=== PATIENT | female | born 1955 | race Caucasian/White ===

== ENCOUNTER → 2016-12-24 | Outpatient (CLI) | payer OTHER ==
--- NOTE | 2016-12-24 09:30 | MR ---
EXAMINATION TYPE: MR brain wo con DATE OF EXAM: 12/24/2016 8:19 AM COMPARISON: MRI brain March 08, 2016. HISTORY: Aneurysm per order. Symptoms of dizziness per patient. TECHNIQUE: Multiplanar, multisequence imaging of the brain and brainstem is performed without IV cont rast. FINDINGS: Diffusion weighted images demonstrate no evidence of a recent infarct or other diffusion abnormality. There is no worrisome extra-axial fluid collection. There is persistent ventricular and sulcal promin ence consistent with mild age-related cerebral atrophy. There is some focal and confluent areas of T2 hyperintensity seen throughout the deep and periventricular white matter. Lesions are nonspecific in appearance and distribution but most likely on basis of product of chronic small vessel ischemic gordon nge. No significant change from prior study is seen. Lesion right gen on axial image 8 is stable. Midline structures demonstrate normal morphology. The craniocervical junction appears within normal limits. There is redemonstration of aneurysm at left MCA trifurcation on axial image 12. The visualiz ed sinuses are clear and the globes are intact. IMPRESSION: Mild to moderate white matter changes presumed on basis of product of chronic small vesse l ischemic change in patient this age. No significant change from prior study is seen. Left MCA trifu rcation aneurysm redemonstrated. Please see same day MRA head and neck report.
--- NOTE | 2016-12-24 11:15 | MR ---
EXAMINATION TYPE: MR angio head wo MR angio neck wo/w con DATE OF EXAM: 12/24/2016 8:22 AM COMPARISON: Correlation brain performed earlier today and ultrasound carotids 03/08/2016. Also, CTA hea d 03/08/2016. HISTORY: 61-year-old female aneurysm and carotid stenosis Technique: High-resolution 3-D [id number] imaging of the [place] without IV contrast. Ad ditional 2-D and 3-D gjdn-zw-dsinoz imaging of the neck vasculature followed by coronal pre and postc ontrast sequences utilizing 20 mL intravenous MultiHance gadolinium contrast. FINDINGS: HEAD: There is a tiny 2 mm infundibulum or aneurysm from the lateral wall of the cavernous segment of the r ight internal carotid artery, axial image 74 and series 204 image 7. There is also redemonstrated saccular aneurysm of the M1 segment bifurcation. On the present exam, th is measures 6.1 x craniocaudal 5.9 AP x 4.4 mm wide, refer to series 204 image 18 and series 203 spring ge 9. No other intracranial aneurysm, significant stenosis, or arterial occlusion seen. NECK: There is eccentric atherosclerotic change at the right carotid bulb causing a mild, 30% stenosis of t he proximal ICA by NASCET criteria. On the left, there is atherosclerotic change narrowing the carotid bifurcation at the level of the di stal common carotid artery and proximal most aspect of the internal carotid artery with asymmetric bu lbous dilatation of the carotid bulb up to 7.9 mm. Narrowing of the proximalmost left ICA is measured at a moderate 50% by NASCET criteria criteria, refer to series 703 image 32. The bilateral vertebral arteries are codominant and patent throughout their course. IMPRESSION: 1. Redemonstrated saccular aneurysm at the left MCA bifurcation. This is measured at 6.1 x 5.9 mm seble rod 7 mm on prior CTA. 2. A 2 mm infundibulum versus tiny aneurysm from the lateral wall of the cavernous segment right ICA. 3. Mild, 30% proximal ICA stenosis on the right. 4. Atherosclerotic change at the left carotid bifurcation causing a moderate, 50% stenosis at the pro ximal most left ICA with asymmetric bulbous enlargement of the left carotid bulb.
== END | disposition home or self-care (01) ==
LOC: RADMRIMAIN 07:00
PROVIDERS: ATTEND Nurse Practitioner Acute Care
DX: I67.1 Cerebral aneurysm, nonruptured (principal); R90.82 White matter disease, unspecified; I65.23 Occlusion and stenosis of bilateral carotid arteries
CPT/HCPCS: 70544; 70549; 70551; A9577

== ENCOUNTER → 2017-01-14 | Outpatient (CLI) | payer OTHER ==
--- NOTE | 2017-01-16 14:28 | MM ---
Reason for exam: screening (asymptomatic). Last mammogram was performed 3 years and 5 months ago. History: Patient is postmenopausal. Taking estrogen for 8 years 6 months. Physical Findings: A clinical breast exam by your physician is recommended on an annual basis and results should be correlated with mammographic findings. MG Screening Mammo w CAD Bilateral CC and MLO view(s) were taken. Prior study comparison: August 24, 2013, bilateral digital screening mammo w/CAD. August 05, 2006, bilateral screening mammogram, performed at [facility]. The breast tissue is heterogeneously dense. This may lower the sensitivity of mammography. No significant changes when compared with prior studies. ASSESSMENT: Negative, BI-RAD 1 RECOMMENDATION: Routine screening mammogram of both breasts in 1 year.
== END | disposition home or self-care (01) ==
LOC: RADMAMWWP 10:24
PROVIDERS: ATTEND Family Medicine
DX: Z12.31 Encounter for screening mammogram for malignant neoplasm of breast (principal)

== ENCOUNTER 2017-02-15 11:22 | Observation (INO) | payer OTHER ==
[2017-02-15] MEDS ORDERED: MORPHINE SULFATE 2 MG/ML SYRINGE IVP STA (11:46)
[2017-02-15] MEDS ORDERED: SODIUM CHLORIDE 0.9% 1,000 ML IV STA (11:46)
[2017-02-15] MEDS ORDERED: ONDANSETRON 4 MG/2 ML VIAL IVP STA (11:46)
[2017-02-15] MEDS ORDERED: NITROGLYCERIN OINT 1 INCH/GM PACKET TOPICAL STA (11:46)
--- NOTE | 2017-02-15 11:55 | ED ---
Chest Pain HPI - General Chief Complaint: Chest Pain Stated Complaint: chest pain Time Seen by Provider: 02/15/17 11:36 Source: patient, EMS Mode of arrival: EMS Limitations: no limitations - History of Present Illness Initial Comments: She noticed the chest pain 8 AM today, there is a pain in the neck. There was pain in the jaws in this pain is pretty similar to the pain when she had her first heart attack when she took 1 nitro nitro took the edge off but the pain came back and then at that point she was quite nauseous no vomiting she had a cold sweats. Does complain about shortness of breath now and some pain with deep breaths. She does have a history of coronary artery disease she had a stent put and about 17 years ago and also she has a history of brain aneurysm for which she is waiting to hear back from [facility] neurosurgeon - Related Data Home Medications Medication Instructions Recorded Confirmed Nitroglycerin Sl Tabs [Nitrostat] 0.4 mg SUBLINGUAL Q5M PRN 01/09/14 02/15/17 Cyanocobalamin [Vitamin B-12] 1,000 mcg PO DAILY 07/17/14 02/15/17 Simvastatin [Zocor] 40 mg PO HS 08/16/16 02/15/17 Albuterol Sulfate [Proventil Hfa] 1 - 2 puff INHALATION RT-QID PRN 02/15/1707/24 Aspirin 325 mg PO DAILY 02/15/17 02/15/17 Co Q-10 50 mg PO DAILY 02/15/17 02/15/17 Furosemide [Lasix] 80 mg PO BID 02/15/17 02/15/17 Ginkgo Biloba [place] Extract [Ginkgo 60 mg PO DAILY 02/15/17 02/15/17 Biloba Extract] Lisinopril [Zestril] 2.5 mg PO DAILY 02/15/17 02/15/17 Previous Rx's Medication Instructions Recorded Carvedilol [Coreg] 6.25 mg PO BID #60 tablet 03/08/16 Spironolactone [Aldactone] 25 mg PO DAILY #30 tab 08/19/16 Allergies Allergy/AdvReac Type Severity Reaction Status Date / Time lactose Allergy Nausea & Verified 02/15/17 12:13 Vomiting Review of Systems ROS Statement: Those systems with pertinent positive or pertinent negative responses have been documented in the HPI. ROS Other: All systems not noted in ROS Statement are negative. EKG Findings - EKG Comments: EKG Findings:: EKG is normal sinus rhythm ventricular rate is 94 MT interval is 160 QRS duration is 118 QT/QTc is 390/[address] depression in lead [address] depression noticed in the other leads Past Medical History Past Medical History: Coronary Artery Disease (CAD), Hyperlipidemia, Hypertension, Myocardial Infarction (AL) Additional Past Medical History / Comment(s): Brain aneurysm 03/16/16 Last Myocardial Infarction Date:: 07/2000 History of Any Multi-Drug Resistant Organisms: None Reported Past Surgical History: Heart Catheterization With Stent Additional Past Surgical History / Comment(s): tube in left tear duct, pt states she has a stent and does know that it is blocked Past Anesthesia/Blood Transfusion Reactions: No Reported Reaction Date of Last Stent Placement:: 07/2000 Past Psychological History: No Psychological Hx Reported Smoking Status: Former smoker Past Alcohol Use History: Occasional Past Drug Use History: None Reported Additional Drug Use History / Comment(s): pt smokes a half a pack of cigarettes per day for 40 years - Past Family History Mother Family Medical History: Chest Pain / Angina, Coronary Artery Disease (CAD) Sister(s) Family Medical History: Congestive Heart Failure (CHF) General Exam - General Exam Comments Initial Comments: General: The patient is awake and alert, in no distress, and does not appear acutely ill. Skin: Skin is warm and dry and no rashes or lesions are noted. Eye: Pupils are equal, round and reactive to light, extra-ocular movements are intact; there is normal conjunctiva bilaterally. Ears, nose, mouth and throat: There are moist mucous membranes and no oral lesions. Neck: The neck is supple, there is no tenderness or JVD. Cardiovascular: There is a regular rate and rhythm. No murmur, rub or gallop is appreciated. Respiratory: To auscultation bilateral, crease breath sounds bilaterally Gastrointestinal: Soft, non-distended, non-tender abdomen without masses or organomegaly noted. There is no rebound or guarding present. Bowel sounds are unremarkable. Back: There is no tenderness to palpation in the midline. There is no obvious deformity. Musculoskeletal: Normal ROM, no tenderness, There is no pedal edema. There is no calf tenderness or swelling. No cords were appreciated. Neurological: CN II-XII intact, Cranial nerves III through XII are intact. There are no obvious motor or sensory deficits. Coordination appears grossly intact. Speech is normal. Psychiatric: Cooperative, appropriate mood & affect, normal judgment. Limitations: no limitations Course Vital Signs 02/15/17 02/15/17 02/15/17 11:23 12:16 13:00 Temperature 99.3 F Pulse Rate 95 94 84 Respiratory 18 18 18 Rate Blood Pressure 162/103 123/75 125/78 O2 Sat by Pulse 96 96 97 Oximetry 02/15/17 14:00 Temperature Pulse Rate 81 Respiratory 18 Rate Blood Pressure 127/82 O2 Sat by Pulse 97 Oximetry She was reassessed at 1440, all her labs and imaging studies 90 reviewed and discussed with the patient, CBC, troponin, compressive metabolic panel and chest x-ray are normal CT angiogram was normal as well patient does have a mild congestive heart failure the chest pain is gone now in d-dimer is elevated and CT angiogram normal considering her age and the risk factors I would like to admit him for observation for 3 sets of cardiac markers at least but she would not heparinize considering she has a history of brain aneurysm which has not been assessed recently she was admitted to Dr. Sawyer service and cardiology be consulted, she is pain-free now Critical Care Time Total Critical Care Time: 30 Critical Care Time: She came in with a chest pain and which had responded to nitro spray during her stay and she remained hemodynamically stable lab review showed CBC and a troponin being normal along with EKG and chest x-ray d-dimer was quite elevated considering that CT angiogram chest was done which was negative then had ruled out any pulmonary embolism in the chest she does have a history of heart disease and she is a candidate for heparinization and chest x-ray showed mild congestive heart failure on top of a chest pain but considering she has a brain aneurysm which has not been stressed lately I'm canal hold off she will just: Aspirin and I'll let the special event assistant decide about that, she would need at least 3 sets of cardiac markers rule out any recurrent ischemic event she had a chemical stress test done about 2 weeks ago by her special event assistant at that time it was negative Disposition Clinical Impression: Chest pain, Congestive heart failure Disposition: ADMITTED IP TO THIS HOSP Condition: Good Referrals: Manuela Abebe DO [Primary Care Provider] - 1-2 days
[2017-02-15 12:14] LABS: Basophils # (A) 0.1 k/uL (0-0.2); Basophils % (A) 1 %; CH 31.8; Eosinophils # (A) 0.3 k/uL (0-0.7); Eosinophils % (A) 3 %; HCT 44.9 % (34.0-46.0); HDW 2.23; HGB 14.6 gm/dL (11.4-16.0); Luc # (Auto) 0.25; Luc % (Auto) 3; Lymphocytes # (A) 2.8 k/uL (1.0-4.8); Lymphocytes % (A) 30 %; MCH 31.6 pg (25.0-35.0); MCHC 32.6 g/dL (31.0-37.0); MCV 96.9 fL (80.0-100.0); Mean Platelet Volume 8.8; Monocytes # (A) 0.5 k/uL (0-1.0); Monocytes % (A) 5 %; Neutrophils # (A) 5.4 k/uL (1.3-7.7); Neutrophils % (A) 58 %; RBC 4.63 m/uL (3.80-5.40); WBC 9.3 k/uL (3.8-10.6); WBC (Perox) 8.92
[2017-02-15 12:20] LABS: ALT 46 U/L (9-52); AST 29 U/L (14-36); Alkaline Phosphatase 109 U/L (38-126); Anion Gap 11 mmol/L; Blood Urea Nitrogen 17 mg/dL (7-17); Calcium 9.4 mg/dL (8.4-10.2); Carbon Dioxide 20 mmol/L (22-30); Chloride 110 mmol/L (98-107); Glucose 104 mg/dL (74-99); Magnesium 1.9 mg/dL (1.6-2.3); Non-African American GFR(MDRD) >60 (>60 ml/min/1.73 sqM); Potassium 4.3 mmol/L (3.5-5.1); Sodium 141 mmol/L (137-145); Total Protein 7.2 g/dL (6.3-8.2)
[2017-02-15 12:27] LABS: Partial Thromboplastin Time 23.5 sec (22.0-30.0); Prothrombin Time 10.2 sec (9.0-12.0)
--- NOTE | 2017-02-15 12:35 | XR ---
EXAMINATION TYPE: XR chest 2V DATE OF EXAM: 02/15/2017 COMPARISON: 08/19/2016 HISTORY: Chest pain TECHNIQUE: Frontal and lateral views of the chest are obtained. FINDINGS: Heart is normal. Lungs are clear of consolidation. Thoracic aorta is atheromatous. There i s no pleural effusion. There are no hilar masses. There is spurring in the thoracic spine. IMPRESSION: No active cardiopulmonary disease. Normal heart. No change compared to old exam.
[2017-02-15 12:40] LABS: Creatine Kinase 77 U/L (30-135)
[2017-02-15 12:52] LABS: Troponin I <0.012 ng/mL (0.000-0.034)
[2017-02-15] MEDS ORDERED: RX INFO: IV CONTRAST WAS GIVEN 1 EACH MISC MISCELLANE PRN (13:07)
--- NOTE | 2017-02-15 13:32 | CT ---
EXAMINATION TYPE: CT angio chest DATE OF EXAM: 02/15/2017 1:26 PM COMPARISON: 08/16/2016 HISTORY: Chest pains CT DLP: 368.6 mGycm Automated exposure control for dose reduction was used. CONTRAST: CTA scan of the thorax is performed with IV Contrast, patient injected with 100 mL of Omnipaque 350, pulmonary embolism protocol. There are 3-D post processed images.. FINDINGS: There is mild pulmonary emphysema. There is no evidence of a pulmonary mass. There is no pulmonary co nsolidation. There is no pleural effusion. I see no filling defects in the pulmonary arteries. There is no evidence of aortic dissection. Thorac ic aorta is atheromatous. There is no evidence of aortic aneurysm. The heart appears slightly enlarge d. There is some reflux of the contrast into the inferior vena cava. This suggests the presence of so me mild heart failure. IMPRESSION: NO EVIDENCE OF PULMONARY EMBOLISM. THERE IS CLEARING OF THE PULMONARY EDEMA AND PLEURAL FLUID COMPARE D TO OLD CT SCAN. CARDIOMEGALY. THERE IS PROBABLY SOME MILD DEGREE OF HEART FAILURE.
[2017-02-15] MEDS ORDERED: NITROGLYCERIN SL TABS 0.4 MG TAB SUBLINGUAL PRN ×2 (15:47→15:50)
[2017-02-15] MEDS ORDERED: MORPHINE SULFATE 2 MG/ML SYRINGE IVP PRN (15:47)
[2017-02-15] MEDS ORDERED: ALBUTEROL NEBULIZED 2.5 MG/3 ML INHALATION PRN (15:50)
[2017-02-15] MEDS ORDERED: SODIUM CHLORIDE 0.9% 1,000 ML IV SCH (16:00)
[2017-02-15 17:07] VITALS: RESP 16
[2017-02-15] MEDS: CARVEDILOL 6.25 MG TAB PO SCH (17:46)
[2017-02-15] MEDS: FUROSEMIDE 80 MG TAB PO SCH (17:46)
[2017-02-15 17:47] LABS: Creatine Kinase 69 U/L (30-135)
[2017-02-15 17:59] LABS: Creatine Kinase MB 0.9 ng/mL (0.0-2.4); Troponin I <0.012 ng/mL (0.000-0.034)
[2017-02-15] MEDS ORDERED: ATORVASTATIN 20 MG TAB PO SCH (21:00)
[2017-02-15 23:33] LABS: Creatine Kinase 66 U/L (30-135)
[2017-02-15 23:45] LABS: Troponin I <0.012 ng/mL (0.000-0.034)
[2017-02-16 06:07] LABS: Cholesterol 181 mg/dL (<200); HDL Cholesterol 39 mg/dL (40-60); Triglycerides 247 mg/dL (<150)
[2017-02-16] MEDS ORDERED: RANOLAZINE 500 MG TAB.ER.12H PO SCH (09:00)
[2017-02-16] MEDS ORDERED: ASPIRIN 325 MG TAB PO SCH (09:00)
[2017-02-16] MEDS ORDERED: CO Q10 50 MG PO SCH (09:00)
[2017-02-16] MEDS ORDERED: GINKGO BILOBA LEAF EXTRACT 60 MG PO SCH (09:00)
[2017-02-16] MEDS ORDERED: SPIRONOLACTONE 25 MG TAB PO SCH (09:00)
[2017-02-16] MEDS ORDERED: LISINOPRIL 2.5 MG TAB PO SCH (09:00)
[2017-02-16] MEDS: CARVEDILOL 6.25 MG TAB PO SCH (09:01)
[2017-02-16] MEDS: FUROSEMIDE 80 MG TAB PO SCH (09:01)
[2017-02-16 11:53] VITALS: BP 126/76; PULSE 79; TEMP 98.3
[2017-02-16] MEDS ORDERED: CYANOCOBALAMIN 500 MCG TAB PO SCH (12:00)
--- NOTE | 2017-02-16 13:36 | HP ---
DATE OF ADMISSION: 02/15/2017 CHIEF COMPLAINT: Chest pain. HISTORY OF PRESENT ILLNESS: This 61-year-old woman with a past medical history of multiple medical problems including CAD, hypertension, hyperlipidemia, history of myocardial infarction, brain aneurysm, history of CHF, history of coronary artery disease, stent being followed by Dr. Zimmer in the outpatient setting, was admitted with complaints of chest pain to [facility]. The patient also had pain in the neck and radiating to the jaw similar to heart attack. Patient took one nitroglycerin and had some relief, but apparently the nitroglycerin was . Because of the recurrent episodes of neck pain and jaw pain, the patient came to [facility] and admitted for further evaluation and treatment. The patient is apparently worked up for AICD, awaiting neuro evaluation for the brain aneurysm. The patient has saccular aneurysm of the left MCA bifurcation about 6.1 x 5.9 mm versus 7 mm in the prior CTA. Lateral wall of the common right ICA aneurysm was also suspected. There was 50% stenosis of the proximal left ICA with enlargement of the left carotid bulb. There is no history of fever, rigors, headache, loss of consciousness, seizures at this time. PAST MEDICAL HISTORY: Coronary artery disease, hypertension, hyperlipidemia, history of myocardial infarction, history of brain aneurysm, history of congestive heart failure, coronary artery disease and stent. Medications prior to admission: 1. [place] biloba 60 mg p.o. daily. 2. Lasix 80 mg p.o. b.i.d. 3. Aspirin 81 mg daily. 4. Proventil 1 to 2 puffs q.i.d. p.r.n. 5. Aldactone 25 mg p.o. daily. 6. Zocor 40 mg q.h.s. 7. Nitrostat 0.4 sublingual p.r.n. 8. Zestril 2.5 mg daily. 9. Vitamin B12 2,000 mcg p.o. daily. 10. Coreg 6.25 mg p.o. b.i.d. 11. Coenzyme Q 50 mg p.o. daily. ALLERGIES: LACTOSE. FAMILY HISTORY: History of coronary artery disease, chest pain, angina. SOCIAL HISTORY: Previous history of smoking. No history of current smoking or alcohol. REVIEW OF SYSTEMS: ENT: No diminishing hearing or diminished vision. CARDIOVASCULAR: As mentioned earlier. RESPIRATORY: As mentioned earlier. ' GI: No nausea. : No dysuria. NERVOUS SYSTEM: No numbness or weakness. ALLERGY/IMMUNOLOGY: No asthma or hayfever. MUSCULOSKELETAL: As mentioned earlier. HEMATOLOGY/ONCOLOGY: No history of anemia. ENDOCRINE: No history of diabetes or hypothyroidism. CONSTITUTIONAL: As mentioned earlier. DERMATOLOGY: Negative. RHEUMATOLOGY: Negative. PSYCHIATRY: As mentioned earlier. PHYSICAL EXAMINATION: Patient is alert and oriented x3. Pulse is 87, blood pressure 168/89, respirations 16, temperature 98.2. Pulse ox 90% on 2 liters. HEENT: Conjunctivae normal. NECK: No jugular venous distention. CARDIOVASCULAR: S1 and S2. No S3, no S4. RESPIRATORY: Breath sounds diminished at the bases. No rhonchi, no crackles. ABDOMEN: Soft, nontender. No mass palpable. LEGS: No edema, no swelling. NERVOUS SYSTEM: Higher function as mentioned. Moves all four limbs. No focal motor or sensory deficits. LYMPHATIC: No lymphadenopathy in the neck, axillae or groin. SKIN: No ulcer, rash or bleeding. LABS: CBC within normal limits. D-dimer is 0.74, CO2 is 20. Glucose 104. The patient also had CTA of the chest and CTA showed evidence of pulmonary embolism, clearing of the pulmonary edema and pleural fluid compared to previously. ASSESSMENT: 1. Chest pain, possible unstable angina. 2. History of congestive heart failure with chronic systolic dysfunction, ejection fraction 45%. 3. History of chronic obstructive pulmonary disease. 4. History of brain aneurysm in the left MCA bifurcation. 5. History of coronary artery disease and stent. 6. History of hypertension. 7. History of hyperlipidemia. 8. History of myocardial infarction. 9. Remote history of nicotine dependence. RECOMMENDATIONS AND DISCUSSION: In this 61-year-old woman who presented with multiple complex medical issues, we will monitor the patient closely. Continue the current medications. Continue symptomatic treatment. Otherwise, at this time will continue with beta blockers and antiplatelet agents. Cardiology consultation. Guarded prognosis because of multiple complex medical issues. Further recommendations to follow. A copy of dictation forwarded to Dr. Zimmer who is the primary physician. See orders for details. Will rule out myocardial infarction. The patient is not a candidate for heparin because of the history of pseudoaneurysm. Resume the home medications and further recommendations to follow. Prognosis guarded. MTDD
--- NOTE | 2017-02-16 16:00 | CONS ---
DATE OF CONSULTATION: Mrs. Orellana is a 61-year-old female with a known history of coronary artery disease who presented with symptoms of jaw discomfort. She is followed on a regular basis by Dr. Medina and saw him about 2 weeks ago following myocardial perfusion imaging that, according to her, showed no significant changes. Patient underwent stenting of her left circumflex in July of 2000; subsequently had a repeat cardiac catheterization in 2013 and was found to have mild to moderate diffuse disease in the LAD and the right coronary artery with chronically occluded left circumflex, and medical therapy was recommended. Patient has a history of jaw discomfort in the past but yesterday had 3 episodes occurring at rest, and she felt somewhat dyspneic. Because of that, she came into the emergency room. Usually her discomfort gets better when she takes nitroglycerin. She has chronic dyspnea on exertion and has been smoking up to recently. She has no peripheral edema, no PND, no orthopnea. She has no significant dizziness or syncope. No documented malignant arrhythmia. Her coronary risk factors are remarkable for prior history of smoking. She has history of hypertension and hyperlipidemia. She is a non-diabetic. Her medications at home included: 1. Spironolactone 25 mg daily. 2. Simvastatin 40 mg daily. 3. Lisinopril 2.5 mg daily. 4. Furosemide 80 mg twice a day. 5. Coreg 6.25 mg twice a day. 6. Aspirin once a day. 7. Proventil. 8. Vitamin B12. REVIEW OF SYSTEMS: RESPIRATORY SYSTEM: She has history of dyspnea on exertion, prior history of tobacco use. GI SYSTEM: She has no recent GI bleeding, no peptic ulcer disease. SYSTEM: No dysuria or hematuria. NERVOUS SYSTEM: No history of stroke. She has a prior history of brain aneurysm and has been followed at [facility]. SOCIAL HISTORY: She drinks alcohol on the weekends. PHYSICAL EXAMINATION: A 61-year-old female, alert, oriented, in no apparent distress. Blood pressure 122/60 with a heart rate in the 70s. HEAD: Normocephalic. EYES: Sclerae anicteric. NECK: Good carotid upstroke. No bruit. No jugular venous distention. LUNGS: Clear to auscultation. HEART: Regular rate, rhythm. S1, S2. No S3. No S4. No rub. ABDOMEN: Soft, nontender. Positive bowel sounds. No organomegaly. EXTREMITIES: No edema. Intact distal pulses. Lab data revealed troponin less than 0.012 for 3 samples. Cholesterol 181, LDL of 93. BUN and creatinine of 17 and 0.63. D-dimer 0.74. Hemoglobin of 14.6. EKG revealed a sinus mechanism, normal axis with borderline intraventricular conduction delay and nonspecific ST-T wave changes. Her CT angiogram of the chest showed no evidence of pulmonary embolism. IMPRESSION: 1. Jaw discomfort; could represent chronic angina pectoris, probably related to her chronically occluded left circumflex. 2. Prior history of smoking. 3. Hypertension. 4. Hyperlipidemia. 5. Prior history of ischemic cardiomyopathy. 6. History of brain aneurysm. RECOMMENDATIONS: I will continue present therapy. I will add to her regimen Ranexa 500 mg twice a day. Patient has been intolerant to the nitrate because of severe headache. I will review the results of her recent stress test that was obtained by Dr. Medina and, depending on that, further recommendations will be made. Thank you for this consult. Will follow with you.
--- NOTE | 2017-02-17 10:30 | DS ---
DATE OF ADMISSION: 02/15/2017 DATE OF DISCHARGE: 02/16/2017 FINAL DIAGNOSES: 1. Chest pain and neck pain, possible unstable angina, possible musculoskeletal pain. 2. History of congestive heart failure with chronic systolic dysfunction, ejection fraction 45%. 3. History of chronic obstructive pulmonary disease. 4. History of brain aneurysm of the left MCA bifurcation. 5. History of coronary artery disease and stent. 6. History of hypertension. 7. Hyperlipidemia. 8. History of myocardial infarction. 9. Remote history of nicotine dependence. DISCHARGE DISPOSITION: The patient will be discharged in a stable condition with guarded prognosis. HISTORY OF PRESENT ILLNESS: This 61-year-old woman with a past medical history of multiple medical problems was admitted with chest pain. Myocardial infarction ruled out. Was treated symptomatically. Cardiology saw the patient. Recommended outpatient followup. Patient had an intracranial aneurysm. Cardiology is planning evaluating the patient for AICD placement and prior to that, they are getting a neurosurgical evaluation on which the patient is working at this time. On exam, vitals are stable. CARDIOVASCULAR SYSTEM: S1, S2 muffled. ABDOMEN: Soft, nontender. NERVOUS SYSTEM: No focal deficits. DISCHARGE ADVICE: 1. Diet is cardiac. 2. Activity limited until followup. 3. Follow up with Dr. Abebe in 2 to 3 days. 4. Follow up with Cardiology as advised. 5. Follow up with the neurosurgeon as advised. MEDICATIONS ARE: 1. Proventil 1 to 2 puffs q.6 p.r.n. 2. Aspirin 325 mg daily. 3. Coreg 6.25 mg b.i.d. 4. Coenzyme Q 50 mg p.o. daily. 5. Vitamin B12 one thousand mcg p.o. daily. 6. Lasix 80 mg p.o. b.i.d. 7. Zestril 2.5 mg daily. 8. Nitro 0.4 sublingual p.r.n. 9. Ranexa 500 mg p.o. b.i.d. 10. Zocor 40 mg q.h.s. 11. Aldactone 25 mg p.o. daily. Once again, the patient will be discharged in a stable condition with guarded prognosis.
== END 2017-02-16 13:27 | disposition home or self-care (01) ==
LOC: EC 11:22 → 3OBS 15:47
PROVIDERS: ADMIT Hospitalist; ATTEND Hospitalist
DX: R07.9 Chest pain, unspecified (principal); I50.22 Chronic systolic (congestive) heart failure; J44.9 Chronic obstructive pulmonary disease, unspecified; I67.1 Cerebral aneurysm, nonruptured; I25.10 Atherosclerotic heart disease of native coronary artery without angina pectoris; I11.0 Hypertensive heart disease with heart failure; E78.5 Hyperlipidemia, unspecified; I25.2 Old myocardial infarction; Z87.891 Personal history of nicotine dependence; M54.2 Cervicalgia; I25.5 Ischemic cardiomyopathy; R11.0 Nausea; R06.02 Shortness of breath; Z79.82 Long term (current) use of aspirin; Z79.899 Other long term (current) drug therapy; Z82.49 Family history of ischemic heart disease and other diseases of the circulatory system; Z95.5 Presence of coronary angioplasty implant and graft
CPT/HCPCS: 96374; 96375; 99291; 36415; 94760; 93005; 85379; 83880; 80061; 80053; 82550; 82553; 83735; 84484; 85025; 85610; 85730; 71020; 71275; G0378 ×2; Q9967; J2405; J2270

== ENCOUNTER → 2017-04-30 | Day surgery (SDC) | payer OTHER ==
[2017-04-29 10:31] VITALS: BMI 29.2
[~2017-04-30] MED LIST: LACTATED RINGERS 1,000 ML IV SCH; SODIUM CHLORIDE 0.9% 1,000 ML IV SCH; ceFAZolin 1,000 MG in SODIUM CHLORIDE 0.9% IRRIGATIO 250 ML IRRIGATION ONE; ceFAZolin 2 GM in SODIUM CHLORIDE 0.9% 100 ML IVPB ONE
[2017-04-30 07:47] VITALS: BP 138/77; PULSE 64; RESP 20; TEMP 98
== END ==
LOC: CATHEP 07:04
PROVIDERS: ATTEND Internal Medicine Cardiovascular Disease
DX: Z53.9 Procedure and treatment not carried out, unspecified reason (principal); Z91.011 Allergy to milk products; I25.10 Atherosclerotic heart disease of native coronary artery without angina pectoris; I49.9 Cardiac arrhythmia, unspecified; I10 Essential (primary) hypertension; E78.5 Hyperlipidemia, unspecified; J44.9 Chronic obstructive pulmonary disease, unspecified; Z79.02 Long term (current) use of antithrombotics/antiplatelets; Z79.82 Long term (current) use of aspirin; Z79.899 Other long term (current) drug therapy

== ENCOUNTER 2017-05-04 07:07 | Day surgery (SDC) | payer OTHER ==
[2017-05-01 09:49] VITALS: BMI 29.2
[~2017-05-04 07:07] MED LIST changes: -LACTATED RINGERS 1,000 ML IV SCH; -SODIUM CHLORIDE 0.9% 1,000 ML IV SCH
[2017-05-04] MEDS: SODIUM CHLORIDE 0.9% 1,000 ML IV SCH (07:51)
[2017-05-04] MEDS ORDERED: MIDAZOLAM 2 MG/2 ML VIAL ONE (09:08)
[2017-05-04] MEDS ORDERED: fentaNYL (PF) 50 MCG/ML 2 ML AMP ONE (09:08)
[2017-05-04] MEDS ORDERED: PROPOFOL 10 MG/ML 20 ML VIAL IV ONE (09:08)
[2017-05-04] MEDS ORDERED: IODIXANOL 320 MG/ML 100 ML IV ONE (09:25)
[2017-05-04] MEDS: LIDOCAINE 1% INJ 10MG/ML (20 ML MDV) SQ ONE ×2 (09:41→09:45)
[2017-05-04] MEDS ORDERED: ACETAMINOPHEN TAB 325 MG TAB PO PRN (10:18)
[2017-05-04] MEDS ORDERED: DILTIAZEM 125 MG in SODIUM CHLORIDE 0.9% 100 ML IV SCH (10:30)
--- NOTE | 2017-05-04 10:37 | P.PCN ---
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 CONSENT:I have discussed the risks, benefits and alternative therapies for the above-mentioned procedure and for both sedation/analgesia as well as necessary blood product administration, if indicated, as they pertain to this patient. The patient has indicated understanding and acceptance of the risks and procedures discussed. PROCEDURE: Patient was brought to the lab in a fasting state. Patient was prepped and draped in the usual fashion. Department of anesthesia administered. Systemic analgesia. The skin below the left clavicle was infiltrated with lidocaine. An incision was made parallel to deltopectoral groove was deepened until the pectoral fascia was exposed. A pocket was created by blunt dissection and cautery. Axillary venography was performed to delineate the course of the axillary vein. On venous stick was performed into extrathoracic portion of the axillary vein and and sheath was advanced over the guidewires and left in subclavian vein LEAD: VENTRICULAR: This was manufactured by [employer]. Model number is 0292 and the serial number is [id number] THE DEVICE: This is manufactured by [employer]. Model number is [id number]. Serial number is [id number]. The ventricular lead is maneuvered l with help of a straight and curved stylets into the left ventricle apical region. Satisfactory position was obtained and threshold measurements were made. The atrial lead was then maneuvered into the right atrial appendage. And thresholds were obtained. THRESHOLDS: VENTRICLE: The minimum patient threshold was 0.6 V at pulse width of 0.5 ms. Impedance is 925 ohms. R-wave: 25 mV. The shock impedance is a 92 ohms The lead was then connected to the pulse generator. The lead and pulse generator remained in the pocket after it was washed with antibiotics. Pocket was closed in the usual fashion. The fascia was closed with 2-0 Prolene ,the subcutaneous tissue was closed with 3-0 Prolene and the skin was closed with 4-0 Prolene. DFT TESTING. DFT testing is done under general anesthesia.. Intratubular fibrillation is induced with T shock, which was appropriately detected. 11 J shock converted her back to sinus rhythm. Patient tolerated the procedure well PROGRAMMING: Bradycardia programming. MODE: VVI RATE: 40 OUTPUT: Ventricle: 3.5 V at 0.5 ms Tachycardia programming: VF zone was programmed to a rate of 205. Therapies are programmed to 21 J 1, 31 J 1 followed by 41 J 6. VT zone was programmed to a rate of 1 75 bpm. The therapies are programmed to 11 J 1 followed with 21 J 1 followed by 41 J 4 FINAL IMPRESSION: . #1. Axillary venography #2. Successful implantation of single-chamber single coil AICD COMPLICATIONS : None PLAN: . Patient converted into atrial fibrillation, After DFT shocking. He stated it defibrillation for a half hour consult spontaneously converted back to sinus rhythm. Patient will be monitored on the telemetry unit. Chest x-ray in the morning. If patient's remains stable she'll be discharged home tomorrow
[2017-05-04 13:14] VITALS: RESP 16
[2017-05-04] MEDS: ceFAZolin 2 GM in SODIUM CHLORIDE 0.9% 100 ML IVPB SCH ×2 (18:21→21:04)
[2017-05-04] MEDS ORDERED: HYDROcodone/APAP 5-325MG 1 EACH TAB PO PRN (18:27)
[2017-05-05 01:21] VITALS: TEMP 98.1
[2017-05-05] MEDS ORDERED: ALBUTEROL NEBULIZED 2.5 MG/3 ML INHALATION PRN (05:46)
[2017-05-05] MEDS ORDERED: ATORVASTATIN 20 MG TAB PO SCH (05:46)
[2017-05-05] MEDS ORDERED: NITROGLYCERIN SL TABS 0.4 MG TAB SUBLINGUAL PRN (05:46)
[2017-05-05] MEDS: ceFAZolin 2 GM in SODIUM CHLORIDE 0.9% 100 ML IVPB SCH ×2 (06:18→12:14)
[2017-05-05] MEDS: SODIUM CHLORIDE 0.9% 1,000 ML IV SCH (06:27)
[2017-05-05] MEDS: CARVEDILOL 6.25 MG TAB PO SCH ×2 (06:27→08:30)
[2017-05-05] MEDS: FUROSEMIDE 40 MG TAB PO SCH ×2 (06:32→08:32)
--- NOTE | 2017-05-05 06:55 | XR ---
EXAMINATION TYPE: XR chest 2V DATE OF EXAM: 05/05/2017 HISTORY: Lead placement check. REFERENCE: Previous study dated 02/15/2017. FINDINGS: A unipolar pacemaking been inserted via a left subclavian approach. The lead overlies the r ight atrium. The lungs are clear. Pleural spaces are clear. Heart size is upper limits of normal. I do not see uzair dence of pneumothorax. IMPRESSION: SATISFACTORY PACEMAKER PLACEMENT.
[2017-05-05] MEDS ORDERED: ASPIRIN 325 MG TAB PO SCH (09:00)
[2017-05-05] MEDS ORDERED: SPIRONOLACTONE 25 MG TAB PO SCH (09:00)
[2017-05-05] MEDS ORDERED: LISINOPRIL 2.5 MG TAB PO SCH (09:00)
[2017-05-05] MEDS ORDERED: VARENICLINE 1 MG TAB PO SCH (09:00)
[2017-05-05] MEDS ORDERED: NON-FORMULARY DRUG (Ubidecarenone [Co Q-10] 50 MG) PO SCH (09:00)
[2017-05-05] MEDS ORDERED: RANOLAZINE 500 MG TAB.ER.12H PO SCH (09:00)
[2017-05-05] MEDS ORDERED: CYANOCOBALAMIN 500 MCG TAB PO SCH (09:00)
[2017-05-05] MEDS ORDERED: CLOPIDOGREL 75 MG TAB PO SCH (09:00)
--- NOTE | 2017-05-05 11:02 | P.DS ---
Providers Date of admission: April Attending physician: Altagracia Medina Primary care physician: Stated None - Discharge Diagnosis(es) (1) Ischemic cardiomyopathy Current Visit: Yes Status: Acute (2) Congestive heart failure Current Visit: No Status: Acute (3) Hypertension Current Visit: No Status: Acute (4) Nonruptured tucker aneurysm Current Visit: No Status: Acute (5) AICD (automatic cardioverter/defibrillator) present Current Visit: Yes Status: Acute Hospital Course: This 62-year-old female with history of ischemic cardiomyopathy and chronic congestive heart failure , class 1-2,iis brought in for elective AICD implantation and patient had a procedure done yesterday without any complications. Patient remained stable overnight without any symptoms. Her chest x-ray showed proper lead position. Interrogation today revealed stable thresholds. Pacemaker site looks soft without any evidence of hematoma. No arrhythmias are noted and documented. Patient is being discharged home. Continue home medications along with antibiotic and pain medication. Patient will keep the incision dry until seen in the office. Patient is given usual instructions to Keep the left arm below the shoulder level. She is also instructed not to lift any heavy weights pushing or pulling. Plan - Discharge Summary New Discharge Prescriptions: New HYDROcodone/APAP 5-325MG [[place] 5-325] 1 each PO Q6HR PRN #10 tab PRN Reason: Pain Cephalexin [Keflex] 500 mg PO Q8HR #10 cap Continue Nitroglycerin Sl Tabs [Nitrostat] 0.4 mg SUBLINGUAL Q5M PRN PRN Reason: Chest Pain Cyanocobalamin [Vitamin B-12] 1,000 mcg PO DAILY Carvedilol [Coreg] 6.25 mg PO BID #60 tablet Simvastatin [Zocor] 40 mg PO HS Spironolactone [Aldactone] 25 mg PO DAILY #30 tab Furosemide [Lasix] 40 mg PO BID Aspirin 325 mg PO DAILY Albuterol Sulfate [Proventil Hfa] 1 - 2 puff INHALATION RT-QID PRN PRN Reason: Shortness Of Breath Lisinopril [Zestril] 2.5 mg PO DAILY Ubidecarenone [Co Q-10] 50 mg PO DAILY #0 Ranolazine [Ranexa] 500 mg PO Q12HR #60 tab Clopidogrel [Plavix] 75 mg PO DAILY Metoprolol Tartrate [Lopressor] 50 mg PO DAILY Varenicline Tartrate [Chantix] 1 mg PO DAILY Discharge Medication List Nitroglycerin Sl Tabs [Nitrostat] 0.4 mg SUBLINGUAL Q5M PRN 01/09/14 [History] Cyanocobalamin [Vitamin B-12] 1,000 mcg PO DAILY 07/17/14 [History] Carvedilol [Coreg] 6.25 mg PO BID #60 tablet 03/08/16 [Rx] Simvastatin [Zocor] 40 mg PO HS 08/16/16 [History] Spironolactone [Aldactone] 25 mg PO DAILY #30 tab 08/19/16 [Rx] Albuterol Sulfate [Proventil Hfa] 1 - 2 puff INHALATION RT-QID PRN 02/15/17 [ History] Aspirin 325 mg PO DAILY 02/15/17 [History] Furosemide [Lasix] 40 mg PO BID 02/15/17 [History] Lisinopril [Zestril] 2.5 mg PO DAILY 02/15/17 [History] Ubidecarenone [Co Q-10] 50 mg PO DAILY #0 02/15/17 [History] Ranolazine [Ranexa] 500 mg PO Q12HR #60 tab 02/16/17 [Rx] Clopidogrel [Plavix] 75 mg PO DAILY 04/29/17 [History] Metoprolol Tartrate [Lopressor] 50 mg PO DAILY 04/29/17 [History] Varenicline Tartrate [Chantix] 1 mg PO DAILY 04/29/17 [History] Cephalexin [Keflex] 500 mg PO Q8HR #10 cap 05/05/17 [Rx] HYDROcodone/APAP 5-325MG [Barn[place] 5-325] 1 each PO Q6HR PRN #10 tab 05/05/17 [Rx] Follow up Appointment(s)/Referral(s): Altagracia Medina MD [STAFF PHYSICIAN] - 1 Week Discharge Disposition: HOME SELF-CARE
[2017-05-05 14:34] VITALS: BP 159/98; PULSE 83
== END 2017-05-05 14:31 | disposition home or self-care (01) ==
LOC: CATHEP 07:07 → 6SEL 10:15 → CATHEP 05-05 14:31
PROVIDERS: ATTEND Internal Medicine Cardiovascular Disease
DX: I25.5 Ischemic cardiomyopathy (principal); I11.0 Hypertensive heart disease with heart failure; I50.42 Chronic combined systolic (congestive) and diastolic (congestive) heart failure; Z00.6 Encounter for examination for normal comparison and control in clinical research program; Z95.5 Presence of coronary angioplasty implant and graft; Z82.49 Family history of ischemic heart disease and other diseases of the circulatory system; E78.00 Pure hypercholesterolemia, unspecified; I25.2 Old myocardial infarction; E78.5 Hyperlipidemia, unspecified; F17.210 Nicotine dependence, cigarettes, uncomplicated; Z79.82 Long term (current) use of aspirin; Z79.51 Long term (current) use of inhaled steroids; Z79.899 Other long term (current) drug therapy
CPT/HCPCS: 93641; 33249; 71020; C1895; C1722; J2250; Q9967; J0690 ×3; J2001; J3010; J2704

== ENCOUNTER 2017-05-05 18:24 | Emergency (ER) | payer OTHER ==
[2017-05-05] MEDS ORDERED: OXYMETAZOLINE 0.05% NASL SPRAY 1 SPRAY BOTTLE NASAL STA (19:20)
--- NOTE | 2017-05-05 19:44 | ED ---
ENT HPI - General Chief complaint: ENT Stated complaint: Nosebleed Time Seen by Provider: 05/05/17 18:54 Source: patient Mode of arrival: ambulatory Limitations: no limitations - History of Present Illness Initial comments: 62-year-old female patient presented to emergency department today reporting epistaxis from the right nare. Patient states that this started proximal one hour prior to arrival. Patient states that she has was discharged yesterday after having an ICD implanted. Patient states that she is currently taking Plavix for this. Patient states that she has been holding pressure however the bleeding has continued. States she is getting large clots. Patient states when she puts her nose she has drainage on the back of her throat. Patient states that she has had bloody noses in the past. Patient denies any headache, facial pain, dizziness, weakness, abdominal pain, nausea, vomiting, chest pain, shortness of breath, palpitations, or difficulties with urination or bowel movements. - Related Data Home Medications Medication Instructions Recorded Confirmed Nitroglycerin Sl Tabs [Nitrostat] 0.4 mg SUBLINGUAL Q5M PRN 01/09/14 05/05/17 Cyanocobalamin [Vitamin B-12] 1,000 mcg PO DAILY 07/17/14 05/05/17 Simvastatin [Zocor] 40 mg PO HS 08/16/16 05/05/17 Albuterol Sulfate [Proventil Hfa] 1 - 2 puff INHALATION RT-QID PRN 02/15/17 Aspirin 325 mg PO DAILY 02/15/17 05/05/17 Furosemide [Lasix] 40 mg PO BID 02/15/17 05/05/17 Lisinopril [Zestril] 2.5 mg PO DAILY 02/15/17 05/05/17 Ubidecarenone [Co Q-10] 50 mg PO DAILY #0 02/15/17 05/05/17 Clopidogrel [Plavix] 75 mg PO DAILY 04/29/17 05/05/17 Metoprolol Tartrate [Lopressor] 50 mg PO DAILY 04/29/17 05/05/17 Varenicline Tartrate [Chantix] 1 mg PO DAILY 04/29/17 05/05/17 Previous Rx's Medication Instructions Recorded Carvedilol [Coreg] 6.25 mg PO BID #60 tablet 03/08/16 Spironolactone [Aldactone] 25 mg PO DAILY #30 tab 08/19/16 Ranolazine [Ranexa] 500 mg PO Q12HR #60 tab 02/16/17 Cephalexin [Keflex] 500 mg PO Q8HR #10 cap 05/05/17 HYDROcodone/APAP 5-325MG [[place] 1 each PO Q6HR PRN #10 tab 05/05/17 5-325] Allergies Allergy/AdvReac Type Severity Reaction Status Date / Time lactose AdvReac Nausea & Verified 05/05/17 18:53 Vomiting Review of Systems ROS Statement: Those systems with pertinent positive or pertinent negative responses have been documented in the HPI. ROS Other: All systems not noted in ROS Statement are negative. Past Medical History Past Medical History: Coronary Artery Disease (CAD), Chest Pain / Angina, Hyperlipidemia, Hypertension, Myocardial Infarction ([place]) Additional Past Medical History / Comment(s): Brain aneurysm 03/16/16, SOB, Bradycardia. See Dr. Medina's H&P. Last Myocardial Infarction Date:: 07/2000 History of Any Multi-Drug Resistant Organisms: None Reported Past Surgical History: AICD, Appendectomy, Heart Catheterization With Stent Additional Past Surgical History / Comment(s): Tube in left tear duct, AICD 05/04, defibrilator Past Anesthesia/Blood Transfusion Reactions: No Reported Reaction Date of Last Stent Placement:: 07/2000 Type of Cardiac Device: AICD Device Placement Date:: 05/04/2017 Past Psychological History: No Psychological Hx Reported Smoking Status: Former smoker Past Alcohol Use History: Occasional Past Drug Use History: None Reported - Past Family History Mother Family Medical History: Chest Pain / Angina, Coronary Artery Disease (CAD) Sister(s) Family Medical History: Congestive Heart Failure (CHF) General Exam Limitations: no limitations General appearance: alert, in no apparent distress Head exam: Present: atraumatic, normocephalic, normal inspection Eye exam: Present: normal appearance, PERRL, EOMI. Absent: scleral icterus, conjunctival injection, periorbital swelling ENT exam: Present: normal exam, normal oropharynx, mucous membranes moist, TM's normal bilaterally, other (Patient has small amount of bright red bleeding from the right nare. ) Neck exam: Present: normal inspection. Absent: tenderness, meningismus, lymphadenopathy Respiratory exam: Present: normal lung sounds bilaterally. Absent: respiratory distress, wheezes, rales, rhonchi, stridor Cardiovascular Exam: Present: regular rate, normal rhythm, normal heart sounds. Absent: systolic murmur, diastolic murmur, rubs, gallop, clicks Neurological exam: Present: alert, oriented X3, CN II-XII intact Psychiatric exam: Present: normal affect, normal mood Skin exam: Present: warm, dry, intact, normal color. Absent: rash Course Vital Signs 05/05/17 05/05/17 18:50 20:40 Temperature 98.3 F 97.5 F L Pulse Rate 84 87 Respiratory 20 16 Rate Blood Pressure 184/106 187/91 O2 Sat by Pulse 97 96 Oximetry - Reevaluation(s) Reevaluation #1: 05/05/17 19:43 Patient has had nasal clamp in place. Patient states the clamp did slip off a couple times and she replaced it. Patient is still having some bloody nasal drainage from the right naris. Did have patient blow nose to remove any clots. Instilled 2 sprays of Afrin nasal spray to the right nare. Reapplied clamp. Will continue to monitor. 05/05/17 19:54 Medical Decision Making - Medical Decision Making 62-year-old female patient presented to emergency department today for complaints of epistaxis. Patient did have some light bleeding noted from the right nare. Did have patient blow nose, and stilled Afrin into the right Nare, and had patient's use nasal clamp. Bleeding was stopped here in the emergency department. She did have clamp off for 20 minutes without any bleeding noted. The patient instructed to again apply pressure at home if bleeding restarts, and to return if she is unable to get it to stop. Instructed to follow up with her primary care physician for recheck in 1-2 days. Started to return here immediately for any new, worsening, or concerning symptoms. Patient verbalizes understanding and agrees to this plan. Disposition Clinical Impression: Epistaxis Disposition: HOME SELF-CARE Condition: Good Instructions: Nosebleed (ED) Additional Instructions: Use nasal clamp for any rebleeding. If bleeding persists or does not stop with clamping return to the emergency department. Follow up with her primary care physician for recheck in 1-2 days. Return here immediately for any new, worsening, or concerning symptoms. Referrals: Manuela Abebe DO [Primary Care Provider] - 1-2 days Time of Disposition: 20:00
[2017-05-05 20:41] VITALS: BP 187/91; PULSE 87; RESP 16; TEMP 97.5
== END 2017-05-05 20:40 | disposition home or self-care (01) ==
LOC: EC 18:24
DX: R04.0 Epistaxis (principal); I25.119 Atherosclerotic heart disease of native coronary artery with unspecified angina pectoris; I10 Essential (primary) hypertension; I25.2 Old myocardial infarction; Z95.5 Presence of coronary angioplasty implant and graft; Z95.810 Presence of automatic (implantable) cardiac defibrillator; Z87.891 Personal history of nicotine dependence; Z86.79 Personal history of other diseases of the circulatory system; Z79.82 Long term (current) use of aspirin; Z79.899 Other long term (current) drug therapy; Z79.02 Long term (current) use of antithrombotics/antiplatelets; Z91.011 Allergy to milk products
CPT/HCPCS: 99283

== ENCOUNTER 2017-06-12 10:16 | Emergency (ER) | payer OTHER ==
[2017-06-12] MEDS ORDERED: RX INFO: IV CONTRAST WAS GIVEN 1 EACH MISC MISCELLANE PRN (10:34)
--- NOTE | 2017-06-12 10:38 | ED ---
General Adult HPI - General Chief complaint: Neuro Symptoms/Deficit Stated complaint: CVA Time Seen by Provider: 06/12/17 10:25 Source: patient, family, RN notes reviewed Mode of arrival: wheelchair Limitations: no limitations - History of Present Illness Initial comments: This is a 62-year-old female who presents emergency Department complaining of inability to speak. Patient woke up with these symptoms this morning. Patient has no weakness or numbness. Patient has no blurred vision or headache. Patient did however have coils and stents placed in her brain 8 days ago at [facility]. Patient denies any recent fever chills or cough. Patient denies any neck pain or stiffness. Patient denies any chest pain palpitations difficulty breathing or shortness of breath. Patient states she recently had a defibrillator pacemaker placed 3 weeks ago. Patient denies any abdominal pain patient denies nausea vomiting diarrhea. Patient denies any lightheadedness dizziness or near syncopal episode. - Related Data Home Medications Medication Instructions Recorded Confirmed Simvastatin [Zocor] 40 mg PO HS 08/16/16 06/12/17 Clopidogrel [Plavix] 75 mg PO DAILY 04/29/17 06/12/17 Metoprolol Tartrate [Lopressor] 50 mg PO DAILY 04/29/17 06/12/17 Varenicline Tartrate [Chantix] 1 mg PO BID 04/29/17 06/12/17 Lisinopril [Zestril] 20 mg PO DAILY 06/12/17 06/12/17 Nitroglycerin 0.4MG/Hr Patch 1 patch TRANSDERM Q24H 06/12/17 06/12/17 [Nitro-Dur 0.4MG/Hr Patch] methylPREDNISolone [Medrol] 4 mg PO QID 06/12/17 06/12/17 Previous Rx's Medication Instructions Recorded Carvedilol [Coreg] 6.25 mg PO BID #60 tablet 03/08/16 Allergies Allergy/AdvReac Type Severity Reaction Status Date / Time lactose AdvReac Nausea & Verified 06/12/17 11:07 Vomiting Review of Systems ROS Statement: Those systems with pertinent positive or pertinent negative responses have been documented in the HPI. ROS Other: All systems not noted in ROS Statement are negative. Past Medical History Past Medical History: Coronary Artery Disease (CAD), Chest Pain / Angina, Hyperlipidemia, Hypertension, Myocardial Infarction ([place]) Additional Past Medical History / Comment(s): Brain aneurysm 03/16/16, SOB, Bradycardia. See Dr. Medina's H&P. Last Myocardial Infarction Date:: 07/2000 History of Any Multi-Drug Resistant Organisms: None Reported Past Surgical History: AICD, Appendectomy, Heart Catheterization With Stent Additional Past Surgical History / Comment(s): Tube in left tear duct, AICD 05/04, defibrilator Past Anesthesia/Blood Transfusion Reactions: No Reported Reaction Date of Last Stent Placement:: 07/2000 Type of Cardiac Device: AICD Device Placement Date:: 05/04/2017 Past Psychological History: No Psychological Hx Reported Smoking Status: Former smoker Past Alcohol Use History: Occasional Past Drug Use History: None Reported - Past Family History Mother Family Medical History: Chest Pain / Angina, Coronary Artery Disease (CAD) Sister(s) Family Medical History: Congestive Heart Failure (CHF) General Exam - General Exam Comments Initial Comments: GENERAL: Patient is well-developed and well-nourished. Patient is nontoxic and well- hydrated and is in mild distress. ENT: Neck is soft and supple. No significant lymphadenopathy is noted. Oropharynx is clear. Moist mucous membranes. Neck has full range of motion without eliciting any pain. EYES: The sclera were anicteric and conjunctiva were pink and moist. Extraocular movements were intact and pupils were equal round and reactive to light. Eyelids were unremarkable. PULMONARY: Unlabored respirations. Good breath sounds bilaterally. No audible rales rhonchi or wheezing was noted. CARDIOVASCULAR: There is a regular rate and rhythm without any murmurs gallops or rubs. ABDOMEN: Soft and nontender with normal bowel sounds. No palpable organomegaly was noted. There is no palpable pulsatile mass. SKIN: Skin is clear with no lesions or rashes and otherwise unremarkable. NEUROLOGIC: Patient is alert and oriented x3. Cranial nerves II through XII are grossly intact. Motor and sensory are also intact. Patient has expressive aphasia. Unable to assess secondary to patient's inability to speak Symmetrical smile. MUSCULOSKELETAL: Normal extremities with adequate strength and full range of motion. No lower extremity swelling or edema. No calf tenderness. LYMPHATICS: No significant lymphadenopathy is noted PSYCHIATRIC: Normal psychiatric evaluation. Normal interpersonal interactions appears functionally intact in deals appropriately with others. No signs of depression. No signs of anxiety. Limitations: no limitations Course Vital Signs 06/12/17 06/12/17 06/12/17 10:23 10:30 10:45 Temperature 98.5 F 98.6 F 98.6 F Pulse Rate 85 88 72 Respiratory 18 16 16 Rate Blood Pressure 216/106 212/99 184/104 O2 Sat by Pulse 96 98 98 Oximetry 06/12/17 06/12/17 06/12/17 11:00 11:15 11:30 Temperature 98.3 F 98.1 F Pulse Rate 66 77 81 Respiratory 18 18 17 Rate Blood Pressure 170/84 164/89 171/104 O2 Sat by Pulse 98 100 100 Oximetry Medical Decision Making - Medical Decision Making EKG shows sinus rhythm with an occasional PVC at 83 bpm W[place] interval is 154 QRS is 118 QT interval is 398 QTC is 467. Patient's EKG shows no ST segment elevation or depression or T wave abnormalities are noted CTA of the head neck shows no recurrent aneurysm at the level [place] and there is no significant stenosis at the left carotid. CT of the brain shows no acute abnormality. I spoke with Dr. Stoner out of [facility] he wanted the patient transferred here to the ER. I spoke to the ER they accepted the patient patient will be transferred. Patient continues to have expressive aphasia - Lab Data Result diagrams: 06/12/17 10:27 06/12/17 10:27 Lab Results 06/12/17 06/12/17 06/12/17 Range/Units 10:27 10:27 10:27 WBC 11.7 H (3.8-10.6) k/uL RBC 4.72 (3.80-5.40) m/uL Hgb 14.5 (11.4-16.0) gm/dL Hct 44.3 (34.0-46.0) % MCV 94.0 (80.0-100.0) fL MCH 30.8 (25.0-35.0) pg MCHC 32.8 (31.0-37.0) g/dL RDW 14.6 (11.5-15.5) % Plt Count 259 (150-450) k/uL Neutrophils % 63 % Lymphocytes % 28 % Monocytes % 5 % Eosinophils % 2 % Basophils % 1 % Neutrophils # 7.3 (1.3-7.7) k/uL Lymphocytes # 3.3 (1.0-4.8) k/uL Monocytes # 0.5 (0-1.0) k/uL Eosinophils # 0.2 (0-0.7) k/uL Basophils # 0.1 (0-0.2) k/uL PT (9.0-12.0) sec INR (<1.2) APTT (22.0-30.0) sec Sodium 141 (137-145) mmol/L Potassium 4.3 (3.5-5.1) mmol/L Chloride 109 H (98-107) mmol/L Carbon Dioxide 19 L (22-30) mmol/L Anion Gap 13 mmol/L BUN 16 (7-17) mg/dL Creatinine 0.68 (0.52-1.04) mg/dL Est GFR (MDRD) Af Amer >60 (>60 ml/min/1.73 sqM) Est GFR (MDRD) Non-Af >60 (>60 ml/min/1.73 sqM) Glucose 112 H (74-99) mg/dL POC Glucose (mg/dL) (75-99) mg/dL POC Glu Hydrological Technical Officer ID Calcium 9.6 (8.4-10.2) mg/dL Total Bilirubin 0.6 (0.2-1.3) mg/dL AST 27 (14-36) U/L ALT 47 (9-52) U/L Alkaline Phosphatase 129 H (38-126) U/L Total Creatine Kinase 60 (30-135) U/L CK-MB (CK-2) 0.8 (0.0-2.4) ng/mL CK-MB (CK-2) Rel Index 1.3 Troponin I <0.012 (0.000-0.034) ng/mL Total Protein 7.9 (6.3-8.2) g/dL Albumin 4.7 (3.5-5.0) g/dL 06/12/17 06/12/17 Range/Units 10:27 10:34 WBC (3.8-10.6) k/uL RBC (3.80-5.40) m/uL Hgb (11.4-16.0) gm/dL Hct (34.0-46.0) % MCV (80.0-100.0) fL MCH (25.0-35.0) pg MCHC (31.0-37.0) g/dL RDW (11.5-15.5) % Plt Count (150-450) k/uL Neutrophils % % Lymphocytes % % Monocytes % % Eosinophils % % Basophils % % Neutrophils # (1.3-7.7) k/uL Lymphocytes # (1.0-4.8) k/uL Monocytes # (0-1.0) k/uL Eosinophils # (0-0.7) k/uL Basophils # (0-0.2) k/uL PT 9.9 (9.0-12.0) sec INR 1.0 (<1.2) APTT 23.3 (22.0-30.0) sec Sodium (137-145) mmol/L Potassium (3.5-5.1) mmol/L Chloride (98-107) mmol/L Carbon Dioxide (22-30) mmol/L Anion Gap mmol/L BUN (7-17) mg/dL Creatinine (0.52-1.04) mg/dL Est GFR (MDRD) Af Amer (>60 ml/min/1.73 sqM) Est GFR (MDRD) Non-Af (>60 ml/min/1.73 sqM) Glucose (74-99) mg/dL POC Glucose (mg/dL) 122 H (75-99) mg/dL POC Glu Hydrological Technical Officer ID Armida Jacinto Calcium (8.4-10.2) mg/dL Total Bilirubin (0.2-1.3) mg/dL AST (14-36) U/L ALT (9-52) U/L Alkaline Phosphatase (38-126) U/L Total Creatine Kinase (30-135) U/L CK-MB (CK-2) (0.0-2.4) ng/mL CK-MB (CK-2) Rel Index Troponin I (0.000-0.034) ng/mL Total Protein (6.3-8.2) g/dL Albumin (3.5-5.0) g/dL Disposition Clinical Impression: Cerebrovascular accident Disposition: OTHER INSTITUTION NOT DEFINED Referrals: Manuela Abebe DO [Primary Care Provider] - 1-2 days Time of Disposition: 13:07 - Out of Hospital Transfer - Req. Specs Out of Hospital Transfer - Requested Specifics: Other Emergency Center ([facility])
[2017-06-12 10:51] LABS: Glucose,Whole Blood 122 mg/dL (75-99)
[2017-06-12 11:07] LABS: Basophils # (A) 0.1 k/uL (0-0.2); Basophils % (A) 1 %; CH 31.4; CHCM 33.6; Eosinophils # (A) 0.2 k/uL (0-0.7); Eosinophils % (A) 2 %; HCT 44.3 % (34.0-46.0); HDW 2.42; HGB 14.5 gm/dL (11.4-16.0); Luc # (Auto) 0.24; Luc % (Auto) 2; Lymphocytes # (A) 3.3 k/uL (1.0-4.8); Lymphocytes % (A) 28 %; MCH 30.8 pg (25.0-35.0); MCHC 32.8 g/dL (31.0-37.0); Mean Platelet Volume 9.8; Monocytes # (A) 0.5 k/uL (0-1.0); Monocytes % (A) 5 %; Neutrophils # (A) 7.3 k/uL (1.3-7.7); Neutrophils % (A) 63 %; RBC 4.72 m/uL (3.80-5.40); RDW 14.6 % (11.5-15.5); WBC 11.7 k/uL (3.8-10.6); WBC (Perox) 11.07
[2017-06-12 11:16] LABS: ALT 47 U/L (9-52); AST 27 U/L (14-36); Alkaline Phosphatase 129 U/L (38-126); Anion Gap 13 mmol/L; Blood Urea Nitrogen 16 mg/dL (7-17); Calcium 9.6 mg/dL (8.4-10.2); Carbon Dioxide 19 mmol/L (22-30); Chloride 109 mmol/L (98-107); Glucose 112 mg/dL (74-99); Non-African American GFR(MDRD) >60 (>60 ml/min/1.73 sqM); Potassium 4.3 mmol/L (3.5-5.1); Sodium 141 mmol/L (137-145); Total Bilirubin 0.6 mg/dL (0.2-1.3); Total Protein 7.9 g/dL (6.3-8.2)
[2017-06-12 11:22] LABS: Partial Thromboplastin Time 23.3 sec (22.0-30.0); Prothrombin Time 9.9 sec (9.0-12.0)
--- NOTE | 2017-06-12 11:28 | CT ---
EXAMINATION TYPE: CT brain wo con for TPA DATE OF EXAM: 06/12/2017 HISTORY: disorientation, difficulty with speech. Recent aneurysm coil CT DLP: 1116 mGycm. Automated Exposure Control for Dose Reduction was Utilized. TECHNIQUE: CT scan of the head is performed without contrast. COMPARISON: CT brain March 08, 2016. FINDINGS: There is no acute intracranial hemorrhage or midline shift identified. There is mild diff use ventricular and sulcal prominence consistent with diffuse age-related cerebral atrophy. There is mild low-attenuation in the periventricular white matter consistent with chronic small vessel ischem ic change. There is aneurysm clip with adjacent streak artifact at left MCA trifurcation area of prio r aneurysm. Adjacent small stent graft is noted. Patchy soft tissue density right external auditory c anals felt to reflect cerumen. Visualized paranasal sinuses are clear. Visualized globes are intact. IMPRESSION: No acute intracranial hemorrhage or midline shift. There is mild diffuse age-related ce rebral atrophy and chronic small vessel ischemic change redemonstrated. 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
[2017-06-12 11:38] LABS: Creatine Kinase 60 U/L (30-135)
[2017-06-12 11:49] LABS: Creatine Kinase MB 0.8 ng/mL (0.0-2.4); Troponin I <0.012 ng/mL (0.000-0.034)
--- NOTE | 2017-06-12 12:05 | XR ---
EXAMINATION TYPE: XR chest 2V DATE OF EXAM: 06/12/2017 COMPARISON: NONE HISTORY: Shortness of breath TECHNIQUE: Frontal and lateral views of the chest are obtained. FINDINGS: Scattered senescent parenchymal changes noted. Hyperinflation compatible with COPD. No evidence for infiltrate. No evidence for atelectasis. Heart size is mildly enlarged. Pulmonary venous congestion without overt failure. Mediastinal structures are stable and grossly unremarkable. No evidence for hilar prominence. Degenerative changes dorsal spine. IMPRESSION: 1. Heart size is mildly enlarged. Pulmonary venous congestion without overt failure.
--- NOTE | 2017-06-12 12:33 | CT ---
EXAMINATION TYPE: CT angio head neck DATE OF EXAM: 06/12/2017 HISTORY: disorientated, difficulty with speech, recent aneurysm clip COMPARISON: CTA had March 08, 2016. CT brain earlier today. MRA head and neck December 24, 2016 CT DLP: 280.5 mGycm. Automated Exposure Control for Dose Reduction was Utilized. TECHNIQUE: CTA scan of the head and neck are performed with IV Contrast, patient injected with 65 mL of Omnipaque 350, axial images are obtained, coronal and sagittal reformatted images are reviewed. T hree-D reconstructed images are created on an independent workstation and reviewed. FINDINGS: Carotid/Vascular Structures: There is normal three-vessel origin from the aortic arch. No significant plaque or stenosis in the great vessels is seen. Mild mixed plaque is seen in the aortic arch. There is no significant plaque or stenosis along course of the right common carotid artery. There is mild to moderate focal mixed plaque at right carotid bulb without significant stenosis identified. There i s patent external carotid artery without significant stenosis. There is mild calcified plaque supracl inoid segment distal right internal carotid artery. Right internal carotid artery shows no significan t plaque or stenosis otherwise. Left common carotid artery shows no significant plaque or stenosis. There is more focal moderate to s evere mixed plaque at left carotid bulb extending into proximal internal and external carotid arterie s. No significant stenosis in left external carotid artery is present as diameter narrows up to 4.0 m m on raw data image [id number]. Computer calculates narrowing up to 3.4 mm. Stenosis is calculated under 50% .There is mild calcified plaque distal left internal carotid artery supraclinoid segment. There is codominant vertebral basilar system. Vertebral arteries are patent to basilar junction. Ther e is no significant stenosis or aneurysmal change. Hypoplastic posterior communicating arteries are i dentified bilaterally. Images of the anterior circulation show patent anterior communicating artery. There is stent grafts i n the left MCA M2 and M3 segment, distal to this there is coil at trifurcation. There is additional s tent graft in branching vessel posteriorly to coil. Evaluation at level stent graft is suboptimal for patency. Other: There is partial visualization of left sided pacemaker. There is severe multilevel spurring in the mid cervical spine which is straightened. There is multile trevor bilateral uncovertebral facet degenerative changes. IMPRESSION: 1. No recurrent aneurysm at level of [place]. 2. Slightly more prominent focal plaque left carotid bulb without significant stenosis seen in either internal or common carotid artery.
[2017-06-12] MEDS ORDERED: SODIUM CHLORIDE 0.9% 1,000 ML IV ONE (13:03)
[2017-06-12 13:33] VITALS: RESP 16
[2017-06-12 14:40] VITALS: BP 163/82; PULSE 72; TEMP 98.2
== END 2017-06-12 14:47 | disposition other institution (70) ==
LOC: EC 10:16
DX: I63.9 Cerebral infarction, unspecified (principal); I25.10 Atherosclerotic heart disease of native coronary artery without angina pectoris; E78.5 Hyperlipidemia, unspecified; I10 Essential (primary) hypertension; I25.2 Old myocardial infarction; Z87.891 Personal history of nicotine dependence; Z79.02 Long term (current) use of antithrombotics/antiplatelets; Z79.52 Long term (current) use of systemic steroids; Z79.899 Other long term (current) drug therapy; Z91.011 Allergy to milk products
CPT/HCPCS: 99285 ×2; 96360 ×2; 36415; 93005; 80053; 82550; 82553; 84484; 85025; 85610; 85730; 71020; 70496; 70450; 70498; Q9967